=== PATIENT | female | born 1935 | race Caucasian/White ===

== ENCOUNTER 2017-10-06 10:17 | Outpatient (RCR) | payer MEDICARE, OTHER | END 2017-10-12 08:50 | disposition home or self-care (01) | PROVIDERS: ATTEND Nurse Practitioner Family | DX: Z47.89 Encounter for other orthopedic aftercare (principal); M25.511 Pain in right shoulder ==

== ENCOUNTER 2018-04-07 14:54 | Outpatient (RCR) | payer MEDICARE, OTHER | END 2018-05-06 12:55 | disposition home or self-care (01) | PROVIDERS: ATTEND Nurse Practitioner Family | DX: M17.11 Unilateral primary osteoarthritis, right knee (principal) ==

== ENCOUNTER 2018-06-30 10:15 | Outpatient (RCR) | payer MEDICARE | END 2018-07-06 11:14 | disposition home or self-care (01) | PROVIDERS: ATTEND Orthopaedic Surgery | DX: Z47.1 Aftercare following joint replacement surgery (principal); Z96.651 Presence of right artificial knee joint ==

== ENCOUNTER 2018-12-23 00:25 | Inpatient (IN) | payer MEDICARE ==
[~2018-12-23] VITALS: Ht 165.1 cm; Wt 65.3 kg
--- OUTSIDE RECORDS SUMMARY | 2018-12-23 00:30 | XMS REPORT | Continuity of Care Document ---
Demographics Preferred Language Unknown Marital Status Unknown Mormonism Affiliation Unknown Race Unknown Ethnic Group Unknown Author Organization Unknown Address Unknown Allergies There is no data. Medications There is no data. Problems Date Dx Coded Attending Type Code Diagnosis Diagnosed By MARTHA COLEMAN APRN Ot M25.511 PAIN IN RIGHT SHOULDER MARTHA COLEMAN LEAD DESIGNER Ot Z47.89 ENCOUNTER FOR OTHER ORTHOPEDIC AFTERCARE 07/16/1113 GANESH MARIE DO, Ot Z47.1 AFTERCARE FOLLOWING JOINT REPLACEMENT OZUNA 07/16/1113 GANESH MARIE DO Ot Z96.651 PRESENCE OF RIGHT ARTIFICIAL KNEE JOINT 10/17/2009 V05.4 VARICELLA, CHICKENPOX 06/28/2012 V04.81 FLU DX (3 YRS AND ABOVE, IM) 08/24/2017 MARTHA COLEMAN LEAD DESIGNER Ot M25.511 PAIN IN RIGHT SHOULDER 08/24/2017 MARTHA COLEMAN LEAD DESIGNER Ot Z47.89 ENCOUNTER FOR OTHER ORTHOPEDIC AFTERCARE 09/03/2017 JARED MARTHA E LEAD DESIGNER Ot M25.511 PAIN IN RIGHT SHOULDER 09/03/2017 JARED MARTHA E LEAD DESIGNER Ot Z47.89 ENCOUNTER FOR OTHER ORTHOPEDIC AFTERCARE 09/03/2017 JARED MARTHA E LEAD DESIGNER Ot M25.511 PAIN IN RIGHT SHOULDER 09/03/2017 JARED MRATHA E LEAD DESIGNER Ot Z47.89 ENCOUNTER FOR OTHER ORTHOPEDIC AFTERCARE 10/07/2017 JARED, MARTHA E LEAD DESIGNER Ot M25.511 PAIN IN RIGHT SHOULDER 10/07/2017 JARED MARTHA E LEAD DESIGNER Ot Z47.89 ENCOUNTER FOR OTHER ORTHOPEDIC AFTERCARE 10/12/2017 MARTHA COLEMAN LEAD DESIGNER Ot M25.511 PAIN IN RIGHT SHOULDER 10/12/2017 MARTHA COLEMAN LEAD DESIGNER Ot Z47.89 ENCOUNTER FOR OTHER ORTHOPEDIC AFTERCARE 03/05/2018 MARTHA COLEMAN LEAD DESIGNER Ot M17.11 UNILATERAL PRIMARY OSTEOARTHRITIS, RIGHT 06/07/2018 GANESH MARIE DO Ot Z47.1 AFTERCARE FOLLOWING JOINT REPLACEMENT OZUNA 06/07/2018 GANESH MARIE DO Ot Z96.651 PRESENCE OF RIGHT ARTIFICIAL KNEE JOINT 07/01/2018 GANESH MARIE DO Ot Z47.1 AFTERCARE FOLLOWING JOINT REPLACEMENT OZUNA 07/01/2018 GANESH MARIE DO Ot Z96.651 PRESENCE OF RIGHT ARTIFICIAL KNEE JOINT 07/06/2018 GANESH MARIE DO Ot Z47.1 AFTERCARE FOLLOWING JOINT REPLACEMENT OZUNA 07/06/2018 GANESH MARIE DO Ot Z96.651 PRESENCE OF RIGHT ARTIFICIAL KNEE JOINT Procedures There is no data. Results There is no data. Encounters ACCT No. Visit Date/Time Discharge Status Pt. Type Provider Facility Loc./Unit Complaint [id number] 06/28/2012 10:50:00 06/28/2012 23:59:59 CLS Outpatient [id number] 06/30/2018 10:15:00 07/06/2018 11:14:00 DIS Outpatient GANESH MARIE DO Via [facility] REH[facility] S/P R TKA [id number] 04/07/2018 14:54:00 05/06/2018 12:55:00 DIS Outpatient MARTHA COLEMAN APRN Via [facility] REH[facility] OA R KNEE [id number] 10/06/2017 10:17:00 10/12/2017 08:50:00 DIS Outpatient MARTHA COLEMAN APRN [facility] REHAB S/P R SHLD SCOPE;BICEP TENOTOMY;DCE;SAD [id number] 05/26/2017 08:00:00 05/26/2017 23:59:59 CLS Out[facility]
[2018-12-23] MEDS ORDERED: AMLO10TA7 PO (00:59)
[2018-12-23] MEDS ORDERED: OMEP20CA12 PO (00:59)
[2018-12-23] MEDS ORDERED: LACTATED RINGERS 1,000 ML IV ONE (01:04)
--- NOTE | 2018-12-23 01:09 | ED Abdominal Pain ---
General Chief Complaint: Abdominal/GI Problems Stated Complaint: ABD PAIN Source of Information: Patient History of Present Illness Date Seen by Provider: December 23, 2018 Time Seen by Provider: 00:53 Initial Comments PT ARRIVES VIA POV FROM HOME C/O DIFFUSE ABDOMINAL PAIN SINCE 1700 TONIGHT C/O NAUSEA, NO VOMITING HAS HAD NORMAL BM TODAY NO FEVER NO URINARY SYMPTOMS HAS BEEN BELCHING ALOT, WHICH GIVES TEMPORARY RELIEF HAS COLON RESECTION FOR DIVERTICULITIS, APPY AND HYST/BSO. HAS NOT TAKEN ANYTHING FOR PAIN PCP: ARIADNA GUTIERRES Allergies and Home Medications Allergies Coded Allergies: Sulfa (Sulfonamide Antibiotics) (Verified Allergy, Unknown, 12/23/18) Patient Home Medication List Home Medication List Reviewed: Yes Review of Systems Review of Systems Constitutional: no symptoms reported Respiratory: No Symptoms Reported Cardiovascular: No Symptoms Reported Gastrointestinal: See HPI, Abdominal Pain; Denies Constipated, Denies Diarrhea ; Nausea; Denies Poor Appetite, Denies Poor Fluid Intake, Denies Vomiting Genitourinary: No Symptoms Reported Musculoskeletal: no symptoms reported Skin: no symptoms reported Psychiatric/Neurological: No Symptoms Reported Endocrine: No Symptoms Reported Past Oniglrv-Oamfmb-Mjgcke Hx Patient Social History Alcohol Use: Denies Use Recreational Drug Use: No Smoking Status: Never a Smoker 2nd Hand Smoke Exposure: No Recent Foreign Travel: No Contact w/Someone Who Travel: No Recent Hopitalizations: No Immunizations Up To Date Tetanus Booster (TDap): Unknown Seasonal Allergies Seasonal Allergies: No Past Medical History Surgeries: Yes (COLON RESECTION FOR DIVERTICULITIS; RIGHT KNEE REPLACEMENT 2017) Abdominal, Appendectomy, Bowel Surgery, Hysterectomy, Joint Replacement, Oophorectomy, Orthopedic Respiratory: No Cardiac: Yes Hypertension Neurological: No GLOVE BRUSHER History: Hysterectomy, Menopausal Genitourinary: No Gastrointestinal: Yes Gastroesophageal Reflux, Diverticulosis Musculoskeletal: Yes (RIGHT KNEE REPLACEMENT 04/2018) Arthritis Endocrine: No HEENT: No Cancer: No Psychosocial: No Integumentary: No Blood Disorders: No Physical Exam Vital Signs Vital Signs - First Documented 12/23/18 00:52 Temp 98.1 Pulse 94 Resp 16 B/P (MAP) 143/87 (105) Pulse Ox 98 O2 Delivery Room Air Capillary Refill : Height/Weight/BMI Height: '" Weight: lbs. oz. kg; BMI Method: General Appearance: WD/WN, no apparent distress HEENT: PERRL/EOMI Neck: normal inspection Respiratory: normal breath sounds, no respiratory distress, no accessory muscle use Cardiovascular: regular rate, rhythm, no murmur Gastrointestinal: no organomegaly, no pulsatile mass, abnormal bowel sounds ( RARE), distended, tenderness (DIFFUSE); No hernia, No mass Extremities: normal inspection, no pedal edema, normal capillary refill Back: normal inspection, no CVA tenderness Neurologic/Psychiatric: lead java programmer II-XII nml as tested, no motor/sensory deficits, alert, normal mood/affect, oriented x 3 Skin: normal color, warm/dry Progress/Results/Core Measures Results/Orders Lab Results Laboratory Tests Test 12/23/18 01:00 12/23/18 01:10 Range/Units Urine Color YELLOW Urine Clarity CLEAR Urine pH 6.5 5-9 Urine Specific [place] 1.010 L 1.016-1.022 Urine Protein NEGATIVE NEGATIVE Urine Glucose (UA) NEGATIVE NEGATIVE Urine Ketones NEGATIVE NEGATIVE Urine Nitrite NEGATIVE NEGATIVE Urine Bilirubin NEGATIVE NEGATIVE Urine Urobilinogen NORMAL NORMAL MG/DL Urine Leukocyte Esterase 2+ H NEGATIVE Urine RBC (Auto) 3+ H NEGATIVE Urine RBC 2-5 H /HPF Urine WBC 2-5 /HPF Urine Squamous Epithelial Cells 5-10 /HPF Urine Crystals NONE /LPF Urine Bacteria TRACE /HPF Urine Casts NONE /LPF Urine Mucus SMALL H /LPF Urine Culture Indicated NO White Blood Count 9.7 4.3-11.0 10^3/uL Red Blood Count 4.75 4.35-5.85 10^6/uL Hemoglobin 14.6 11.5-16.0 G/DL Hematocrit 44 35-52 % Mean Corpuscular Volume 93 80-99 FL Mean Corpuscular Hemoglobin 31 25-34 PG Mean Corpuscular Hemoglobin Concent 33 32-36 G/DL Red Cell Distribution Width 13.5 10.0-14.5 % Platelet Count 400 130-400 10^3/uL Mean Platelet Volume 8.5 7.4-10.4 FL Neutrophils (%) (Auto) 79 H 42-75 % Lymphocytes (%) (Auto) 11 L 12-44 % Monocytes (%) (Auto) 9 0-12 % Eosinophils (%) (Auto) 1 0-10 % Basophils (%) (Auto) 0 0-10 % Neutrophils # (Auto) 7.6 1.8-7.8 X 10^3 Lymphocytes # (Auto) 1.1 1.0-4.0 X 10^3 Monocytes # (Auto) 0.9 0.0-1.0 X 10^3 Eosinophils # (Auto) 0.1 0.0-0.3 10^3/uL Basophils # (Auto) 0.0 0.0-0.1 10^3/uL Sodium Level 140 135-145 MMOL/L Potassium Level 3.6 3.6-5.0 MMOL/L Chloride Level 105 98-107 MMOL/L Carbon Dioxide Level 21 21-32 MMOL/L Anion Gap 14 5-14 MMOL/L Blood Urea Nitrogen 17 7-18 MG/DL Creatinine 0.94 0.60-1.30 MG/DL Estimat Glomerular Filtration Rate 57 BUN/Creatinine Ratio 18 Glucose Level 131 H 70-105 MG/DL Calcium Level 10.2 H 8.5-10.1 MG/DL Corrected Calcium 9.9 8.5-10.1 MG/DL Total Bilirubin 1.2 H 0.1-1.0 MG/DL Aspartate Amino Transf (AST/SGOT) 17 5-34 U/L Alanine Aminotransferase (ALT/SGPT) 16 0-55 U/L Alkaline Phosphatase 74 40-136 U/L Total Protein 7.7 6.4-8.2 GM/DL Albumin 4.4 3.2-4.5 GM/DL Amylase Level 73 25-125 U/L Lipase 13 8-78 U/L My Orders Orders - DALI BLOOD DO Ed Iv/Invasive Line Start (12/23/18 00:53) Monitor-Rhythm Ecg Trace Only (12/23/18 00:53) Amylase (12/23/18 00:53) Cbc With Automated Diff (12/23/18 00:53) Comprehensive Metabolic Panel (12/23/18 00:53) Lipase (12/23/18 00:53) Ua Culture If Indicated (12/23/18 00:53) Ed Iv/Invasive Line Start (12/23/18 01:04) Lactated Ringers (Lr 1000 Ml Iv Solution (12/23/18 01:04) Ondansetron Injection (Zofran Injectio (12/23/18 01:15) Pantoprazole Injection (Protonix Injecti (12/23/18 01:15) Acute Abd Series (12/23/18 01:39) Ct Abd/Pelvis Wo(Kidney Stone) (12/23/18 01:39) Fentanyl Injection (Sublimaze Injection (12/23/18 03:00) Ondansetron Injection (Zofran Injectio (12/23/18 03:00) Catheter(Urinary) Insert & Ass 03,15 (12/23/18 02:57) Ng Tube Insert & Assessment (12/23/18 02:57) Medications Given in ED Current Medications Medications Dose Ordered Sig/Isac Route Start Time Stop Time Status Last Admin Dose Admin Lactated Ringer's 1,000 ml @ 0 mls/hr Q0M ONCE IV 12/23/18 01:04 12/23/18 01:46 DC 12/23/18 01:17 0 MLS/HR Ondansetron HCl 4 mg ONCE ONCE IVP 12/23/18 01:15 12/23/18 01:46 DC 12/23/18 01:17 4 MG Ondansetron HCl 4 mg ONCE ONCE IVP 12/23/18 03:00 12/23/18 03:01 DC 12/23/18 03:08 4 MG Pantoprazole 40 mg ONCE ONCE IV 12/23/18 01:15 12/23/18 01:46 DC 12/23/18 01:17 40 MG Vital Signs/I&O 12/23/18 00:52 Temp 98.1 Pulse 94 Resp 16 B/P (MAP) 143/87 (105) Pulse Ox 98 O2 Delivery Room Air Diagnostic Imaging Comments ACUTE ABDOMEN XRAYS--NON SPECIFIC BOWEL GAS PATTERN, PENDING RADIOLOGIST REVIEW CT ABDOMEN/PELVIS--HIGH GRADE SMALL BOWEL OBSTRUCTION--PER [facility] VIA FAX @ [id number] Reviewed: Reviewed by Ma Departure Communication (Admissions) 0256--SPOKE WITH DR. RIVERA, ACCEPTS PT FOR ADMIT Impression Primary Impression: Small bowel obstruction Disposition: 09 ADMITTED INPATIENT Condition: Stable Admissions Decision to Admit Reason: Admit from ER (General) Decision to Admit/Date: December 23, 2018 Time/Decision to Admit Time: 03:00 Departure-Patient Inst. Referrals: NO,LOCAL PHYSICIAN (PCP/Family) Primary Care Physician DALI BLOOD DO December 23, 2018 01:09
--- NOTE | 2018-12-23 01:10 | NUR ---
PT INFORMED OF APPROX. WAIT TIME FOR LAB RESULTS.
[2018-12-23 01:15] LABS: BILIRUBIN,URINE NEGATIVE (NEGATIVE); CLARITY,URINE CLEAR; COLOR,URINE YELLOW; GLUCOSE, URINE (UA) NEGATIVE (NEGATIVE); KETONES,URINE NEGATIVE (NEGATIVE); LEUKOCYTE ESTERASE ,URINE 2+ (NEGATIVE); NITRITE,URINE NEGATIVE (NEGATIVE); PH,URINE 6.5 (5-9); PROTEIN,URINE NEGATIVE (NEGATIVE); UROBILINOGEN,URINE NORMAL (NORMAL)
[2018-12-23] MEDS ORDERED: ONDANSETRON 4 MG/2 ML (SDV) Z0FRAN IVP ONE ×2 (01:15→03:00)
[2018-12-23] MEDS ORDERED: PANTOPRAZOLE 40 MG (PROTONIX) VIAL IV ONE (01:15)
[2018-12-23 01:16] LABS: BASOPHILS % (AUTO) 0 % (0-10); EOSINOPHILS # (AUTO) 0.1 10^3/uL (0.0-0.3); EOSINOPHILS % (AUTO) 1 % (0-10); HEMATOCRIT 44 % (35-52); HEMOGLOBIN 14.6 G/DL (11.5-16.0); LYMPHOCYTES # (AUTO) 1.1 X 10^3 (1.0-4.0); LYMPHOCYTES % (AUTO) 11 % (12-44); MEAN CORPUSCULAR HEMOGLOBIN 31 PG (25-34); MEAN CORPUSCULAR HGB CONC 33 G/DL (32-36); MEAN CORPUSCULAR VOLUME 93 FL (80-99); MEAN PLATELET VOLUME 8.5 FL (7.4-10.4); MONOCYTES # (AUTO) 0.9 X 10^3 (0.0-1.0); MONOCYTES % (AUTO) 9 % (0-12); NEUTROPHILS # (AUTO) 7.6 X 10^3 (1.8-7.8); NEUTROPHILS % (AUTO) 79 % (42-75); PLATELET COUNT 400 10^3/uL (130-400); RED CELL DISTRIBUTION WIDTH 13.5 % (10.0-14.5); WHITE BLOOD COUNT 9.7 10^3/uL (4.3-11.0)
[2018-12-23 01:21] LABS: BACTERIA,URINE TRACE /HPF
[2018-12-23 01:46] LABS: ALBUMIN 4.4 GM/DL (3.2-4.5); BILIRUBIN,TOTAL 1.2 MG/DL (0.1-1.0); CALCIUM 10.2 MG/DL (8.5-10.1); CREATININE SERUM 0.94 MG/DL (0.60-1.30); POTASSIUM 3.6 MMOL/L (3.6-5.0); TOTAL PROTEIN 7.7 GM/DL (6.4-8.2)
--- NOTE | 2018-12-23 02:27 | NUR ---
PT BACK FROM RAD. DENIES NEEDS AT THIS TIME.
[2018-12-23] MEDS ORDERED: fentaNYL INJECTION 100 MCG/2 ML AMP IVP ONE (03:00)
--- OUTSIDE RECORDS SUMMARY | 2018-12-23 03:12 | XMS REPORT | Continuity of Care Document ---
Demographics Preferred Language Unknown Marital Status Unknown Buddhism Affiliation Unknown Race Unknown Ethnic Group Unknown Author Organization Unknown Address Unknown Allergies There is no data. Medications There is no data. Problems Date Dx Coded Attending Type Code Diagnosis Diagnosed By MARTHA COLEMAN APRN Ot M25.511 PAIN IN RIGHT SHOULDER MARTHA COLEMAN GUILLOTINE OPERATOR Ot Z47.89 ENCOUNTER FOR OTHER ORTHOPEDIC AFTERCARE 07/16/1113 GANESH MARIE DO, Ot Z47.1 AFTERCARE FOLLOWING JOINT REPLACEMENT OZUNA 07/16/1113 GANESH MARIE DO Ot Z96.651 PRESENCE OF RIGHT ARTIFICIAL KNEE JOINT 10/17/2009 V05.4 VARICELLA, CHICKENPOX 06/28/2012 V04.81 FLU DX (3 YRS AND ABOVE, IM) 08/24/2017 MARTHA COLEMAN GUILLOTINE OPERATOR Ot M25.511 PAIN IN RIGHT SHOULDER 08/24/2017 MARTHA COLEMAN GUILLOTINE OPERATOR Ot Z47.89 ENCOUNTER FOR OTHER ORTHOPEDIC AFTERCARE 09/03/2017 JARED MARTHA E GUILLOTINE OPERATOR Ot M25.511 PAIN IN RIGHT SHOULDER 09/03/2017 JARED MARTHA E GUILLOTINE OPERATOR Ot Z47.89 ENCOUNTER FOR OTHER ORTHOPEDIC AFTERCARE 09/03/2017 JARED MARTHA E GUILLOTINE OPERATOR Ot M25.511 PAIN IN RIGHT SHOULDER 09/03/2017 JARED MARTHA E GUILLOTINE OPERATOR Ot Z47.89 ENCOUNTER FOR OTHER ORTHOPEDIC AFTERCARE 10/07/2017 JARED, MARTHA E GUILLOTINE OPERATOR Ot M25.511 PAIN IN RIGHT SHOULDER 10/07/2017 JARED MARTHA E GUILLOTINE OPERATOR Ot Z47.89 ENCOUNTER FOR OTHER ORTHOPEDIC AFTERCARE 10/12/2017 MARTHA COLEMAN GUILLOTINE OPERATOR Ot M25.511 PAIN IN RIGHT SHOULDER 10/12/2017 MARTHA COLEMAN GUILLOTINE OPERATOR Ot Z47.89 ENCOUNTER FOR OTHER ORTHOPEDIC AFTERCARE 03/05/2018 MARTHA COLEMAN GUILLOTINE OPERATOR Ot M17.11 UNILATERAL PRIMARY OSTEOARTHRITIS, RIGHT 06/07/2018 [...] Status Pt. Type Provider Facility Loc./Unit Complaint [id number] 06/28/2012 10:50:00 06/28/2012 23:59:59 CLS Outpatient [id number] 06/30/2018 10:15:00 07/06/2018 11:14:00 DIS Outpatient GANESH MARIE DO Via [facility] REH[facility] S/P R TKA [id number] 04/07/2018 14:54:00 05/06/2018 12:55:00 DIS Outpatient MARTHA COLEMAN APRN [facility] REH[facility] OA R KNEE [id number] 10/06/2017 10:17:00 10/12/2017 08:50:00 DIS Outpatient MARTHA COLEMAN APRN [facility] REH[facility] S/P R SHLD SCOPE;BICEP TENOTOMY;DCE;SAD [id number] 05/26/2017 08:00:00 05/26/2017 23:59:59 CLS Outpatient [facility]
[2018-12-23] MEDS ORDERED: PROMETHAZINE INJ 25 MG/ML (PHENERGAN) AMP IVP ONE (03:30)
--- NOTE | 2018-12-23 03:55 | NUR ---
MEGAN LEWIS admitted to room 419-1, with an admitting diagnosis of SBO, on 12/23/18 from ED via [facility], accompanied by STAFF.MEGAN LEIWS introduced to surroundings, call light, bed controls, phone, TV, temperature control, lights, meal times, smoking policy, visitor policy, side rail policy, bathrooms and showers. Patient Rights given to patient in the handbook. MEGAN LEWIS verbalizes understanding that [facility] is not responsible for the loss or damage to any personal effects or valuables that are kept in the patients possessions during their hospitalization.
[2018-12-23] MEDS ORDERED: ONDANSETRON 4 MG/2 ML (SDV) Z0FRAN IV PRN (04:30)
[2018-12-23] MEDS: D5 1/2 NS W/KCL 20 MEQ/L 1,000 ML IV SCH ×4 (04:46→21:16)
--- NOTE | 2018-12-23 05:31 | Diagnostic Imaging Report ---
INDICATION: Upper abdominal pain and nausea. COMPARISON: CT abdomen and pelvis from same day. FINDINGS: Supine and upright views of the abdomen show a nondistended bowel gas pattern. No abnormal air fluid levels or free intraperitoneal air is seen. No abnormal extraosseous calcifications are seen. Bony and soft tissue structures are within normal limits. No organomegaly is identified. Accompanying upright chest shows normal heart size and pulmonary vascularity. The lungs are well aerated and clear. The mediastinum is normal in appearance. IMPRESSION: 1. No bowel obstruction or free air. 2. Normal chest. No pneumonia or pulmonary edema. Dictated by: Dictated on workstation # [id number]
[2018-12-23 06:54] LABS: BASOPHILS % (AUTO) 0 % (0-10); EOSINOPHILS % (AUTO) 0 % (0-10); HEMATOCRIT 44 % (35-52); HEMOGLOBIN 14.5 G/DL (11.5-16.0); LYMPHOCYTES # (AUTO) 0.7 X 10^3 (1.0-4.0); LYMPHOCYTES % (AUTO) 9 % (12-44); MEAN CORPUSCULAR HEMOGLOBIN 31 PG (25-34); MEAN CORPUSCULAR HGB CONC 33 G/DL (32-36); MEAN CORPUSCULAR VOLUME 94 FL (80-99); MONOCYTES # (AUTO) 0.5 X 10^3 (0.0-1.0); MONOCYTES % (AUTO) 7 % (0-12); NEUTROPHILS # (AUTO) 6.3 X 10^3 (1.8-7.8); NEUTROPHILS % (AUTO) 83 % (42-75); PLATELET COUNT 355 10^3/uL (130-400); RED CELL DISTRIBUTION WIDTH 13.6 % (10.0-14.5); WHITE BLOOD COUNT 7.5 10^3/uL (4.3-11.0)
--- NOTE | 2018-12-23 07:03 | Diagnostic Imaging Report ---
PROCEDURE: CT urinary tract, rule out kidney stone. TECHNIQUE: Multiple contiguous axial images were obtained through the abdomen and pelvis without the use of intravenous contrast. Auto Exposure Controls were utilized during the CT exam to meet ALARA standards for radiation dose reduction. INDICATION: Upper abdominal pain and nausea COMPARISON: None FINDINGS: Included portions of the lung bases show 5 mm micronodule within the inferolateral margins of the right middle lobe (image 7, series 3). CT abdomen: Normal appendix can't be adequately identified, but there is no pericecal inflammation. A few prominent loops of fluid-filled proximal small bowel loops are identified within the left lower abdominal quadrant. At its widest, the small bowel measures 2.4 cm in diameter. There is associated mild stranding of the adjacent small bowel mesentery. Small amount of ascites is also noted. No definite focal transition point is seen. There is some fecalized stool near the transition to normal small bowel caliber. There is no pneumatosis, pneumoperitoneum, nor portal venous gas. No loculated air-fluid collections are seen to suggest abscess. Note is also made of moderate hiatal hernia and significant distention of the stomach. The kidneys, adrenal glands, spleen, pancreas, and liver have an unremarkable noncontrast CT appearance. No abnormal mesenteric or retroperitoneal adenopathy is seen. There is mild calcified aortic and arterial atherosclerosis. Bony structures show no acute abnormalities. CT pelvis: Urinary bladder is unopacified. No calculi are seen within the urinary bladder. There is no loculated fluid collection, free fluid, nor free air. No abnormal pelvic adenopathy is identified. Bony structures show no acute abnormalities. IMPRESSION: 1. A few mildly prominent fluid-filled loops of small bowel are noted within the left lower abdominal quadrant. Findings nonspecific, but raise concern for enteritis and possible partial obstruction. 2. Mild stranding of the associated mesentery and small amount of ascites, but no pneumatosis, pneumoperitoneum, portal venous gas, nor loculated air-fluid collection. 3. Moderate hiatal hernia. 4. Small micronodule within the included portions of the right middle lobe. If the patient is in a high-risk category, such as history of smoking, may want to consider one-year followup to ensure stability. Dictated by: Dictated on workstation # [id number]
[2018-12-23 07:14] LABS: ALBUMIN 4.1 GM/DL (3.2-4.5); BILIRUBIN,TOTAL 1.3 MG/DL (0.1-1.0); CALCIUM 9.9 MG/DL (8.5-10.1); CREATININE SERUM 0.94 MG/DL (0.60-1.30); TOTAL PROTEIN 7.3 GM/DL (6.4-8.2)
[2018-12-23] MEDS: fentaNYL INJECTION 100 MCG/2 ML AMP IV PRN ×2 (07:59→09:38)
[2018-12-23 08:00] VITALS: BP 149/77
[2018-12-23] MEDS ORDERED: ACET-2650 PO (09:18)
[2018-12-23] MEDS ORDERED: CHOL10007 PO (09:18)
[2018-12-23] MEDS ORDERED: POTA99TA21 PO (09:18)
[2018-12-23] MEDS ORDERED: CETI10TA20 PO (09:18)
[2018-12-23] MEDS ORDERED: CALC-927 PO (09:18)
--- NOTE | 2018-12-23 09:19 | NUR ---
SPOKE WITH THE PATIENT ABOUT HER MEDICATIONS. SHE LISTED WHAT SHE IS TAKING. I VERIFIED THE PRESCRIPTIONS WITH THE EXT MED HX. SHE TAKES THE FOLLOWING OTC: TYLENOL ARTHRITIS PRN VITAMIN D DAILY ZYRTEC DAILY CALCIUM MAGNESIUM ZINC DAILY POTASSIUM DAILY
[2018-12-23] MEDS: PANTOPRAZOLE 40 MG (PROTONIX) VIAL IV SCH (09:21)
[2018-12-23] MEDS ORDERED: FLEET ENEMA ADULT 1 EA BTL PR PRN (09:30)
[2018-12-23] MEDS: MAGNESIUM CITRATE 300 ML BTL PO NR ×2 (10:06→21:16)
[2018-12-23] MEDS: CIPROFLOXACIN IV 400MG/200ML 200 ML IV SCH ×2 (10:24→21:15)
--- NOTE | 2018-12-23 11:03 | HISTORY AND PHYSICAL ---
DATE OF SERVICE: 12/23/2018 HISTORY OF PRESENT ILLNESS: The patient is an 83-year-old female who presented to the Emergency Department with abdominal pain, mild abdominal distention, has one episode of vomiting. A CT scan was performed, which did show a slight dilatation of bowel loops; however, did not appear to be significant and no signs of obstruction. She did have a bowel movement earlier that day. She reports a longstanding history of constipation; however, since being diagnosed with diverticulosis with complications requiring sigmoid colon resection, she has been better about promoting soft stools. She states that she did have a colonoscopy more recently, which was approximately 4 years ago and states that this was normal. Upon further questioning, she does have a history of gastroesophageal reflux disease as well as esophageal stricture requiring a balloon dilatation, which was done several years ago. She continues to have issues with gastroesophageal reflux disease. Again, with more questioning, it was identified that she does have intermittent abdominal pain more in the upper abdominal quadrant after eating a meal and she has had some intermittent episodes of nausea and this has worsened over the years. Upon evaluation of CT scan, she does have a distended gallbladder, which may indicate biliary sludge or a biliary dyskinesia. PAST MEDICAL HISTORY: Gastroesophageal reflux disease, hypertension, degenerative joint disease, and history of diverticulosis. PAST SURGICAL HISTORY: Open sigmoid colon resection in 2003, total hysterectomy with appendectomy, right total knee arthroplasty 04/2018, and right shoulder surgery. ALLERGIES: SULFA. MEDICATIONS: Amlodipine 5 mg daily, omeprazole 40 mg daily. SOCIAL HISTORY: Negative smoke, negative alcohol. FAMILY HISTORY: Mother, ovarian cancer. VITAL SIGNS: Temperature 98.1, blood pressure 143/87, pulse 94, respirations 16, and pulse ox 98% on room air. REVIEW OF SYSTEMS: Well-nourished female currently in no acute distress. She is not experiencing any shortness of breath or difficulty breathing. No chest pain, palpitations, diaphoresis. No nausea, vomiting with her last bowel movement yesterday. No red blood per rectum, no dark tarry stools. History of epigastric burning sensation as well as gastroesophageal reflux disease as well as esophageal stricture requiring a balloon dilatation in the past. She reports that she does have occasional episodes of dysphagia. No fever, chills, no recent inadvertent weight loss. All other review of systems are negative. PHYSICAL EXAMINATION: CHEST: Clear. Good breath sounds bilaterally. HEART: Regular, no murmurs. HEENT: No scleral icterus. NECK: No cervical lymphadenopathy. EXTREMITIES: No lower extremity edema. Negative Homans sign. ABDOMEN: Soft, nondistended. There is discomfort on palpation of the epigastric region as well as right upper abdominal quadrant. SKIN: Warm, dry. LABORATORY DATA: WBC 7.5, hemoglobin 14.5, hematocrit 44, platelets 355. Total bilirubin 1.3, AST 16, ALT 15, BUN 13, and creatinine 0.94. ASSESSMENT AND PLAN: An 83-year-old female with intermittent abdominal pain with episodes of nausea and vomiting. CT scan did show stool within the colon. There was mild dilatation of the small bowel; however, this does not appear consistent with small-bowel obstruction. One thing that was noted was dilatation of the gallbladder and we will remove her NG tube and start a clear liquid diet and also get an ultrasound of the gallbladder. If she does have continued symptoms of crampy abdominal pain after eating a meal as well as nausea, vomiting, she may benefit from a laparoscopic cholecystectomy; however, she also does have issues with gastroesophageal reflux disease and we will also proceed with an esophagogastroduodenoscopy as well as possible balloon dilatation due to intermittent dysphagia. Job ID: [id number] DocumentID: [id number] Dictated Date: 12/23/2018 10:39:22 Biometric Technician Date: 12/23/2018 11:02:13 Dictated By: JESSICA RIVERA MD [facility]
[2018-12-23 12:00] VITALS: BP 113/70
--- NOTE | 2018-12-23 13:56 | Diagnostic Imaging Report ---
PROCEDURE: US Gallbladder. TECHNIQUE: Multiple real-time grayscale images were obtained over the right upper quadrant in various projections. INDICATION: Abdominal discomfort and pain. The liver is normal in size at 16.4 cm. No discrete liver mass is identified. Portal vein is patent and shows normal direction of flow. Gallbladder is without stones or sludge. No wall thickening or biliary duct dilatation is identified. Pancreas is poorly visualized due to bowel gas. Right kidney is unremarkable. There is no ascites. IMPRESSION: Unremarkable gallbladder ultrasound. Dictated by: Dictated on workstation # [id number]
[2018-12-23 15:52] VITALS: BP 125/70
[2018-12-23 19:15] VITALS: BP 125/71
[2018-12-24 00:46] VITALS: BP 119/57
[2018-12-24 04:00] VITALS: BP 165/73
[2018-12-24] MEDS: D5 1/2 NS W/KCL 20 MEQ/L 1,000 ML IV SCH ×3 (05:12→23:04)
[2018-12-24 08:00] VITALS: BP 133/63
[2018-12-24] MEDS: CIPROFLOXACIN IV 400MG/200ML 200 ML IV SCH ×2 (10:06→20:59)
[2018-12-24] MEDS: PANTOPRAZOLE 40 MG (PROTONIX) VIAL IV SCH (10:06)
[2018-12-24 12:00] VITALS: BP 157/72
--- NOTE | 2018-12-24 15:56 | Diagnostic Imaging Report ---
INDICATION: Right upper quadrant pain, nausea, vomiting. FINDINGS: The patient was administered 5.32 mCi of Tc 99m Choletec and sequential imaging was performed over the right upper abdomen. There is progressive, homogeneous accumulation of radiotracer within the liver parenchyma. There is filling of the bile ducts and subsequent filling of the gallbladder. There is progressive clearance of activity from the liver parenchyma and accumulation of radiotracer within loops of small bowel. The patient was then administered a fatty meal, utilizing 8 ounces of Ensure. The gallbladder ejection fraction was calculated to be approximately 51%. (Normal values post fatty meal stimulation are 33% or greater.) IMPRESSION: 1. Hepatobiliary scan demonstrates a patent biliary tree. 2. Normal gallbladder ejection fraction of approximately 51%. Dictated by: Dictated on workstation # [id number]
[2018-12-24 16:00] VITALS: BP 149/67
[2018-12-24 20:00] VITALS: BP 152/68
--- NOTE | 2018-12-24 20:47 | Progress Note-Standard ---
Standard Progress Note Progress Notes/Assess & Plan Date Seen by a Provider: December 24, 2018 Time Seen by a Provider: 20:00 Progress/Assessment & Plan patient at nuclear medicine for HIDA. talked to patient by phone after return to room. patient had reproduction of symptoms after kinevac analog with epigastric and RUQ abd pain and nausea consistent with biliary dyskinesia. pt also has hx of GERD and esophageal stricture. VSS and otherwise doing well. will plan for lap hafsa and EGD on thursday(12/25) at 10:30am. JESSICA RIVERA MD December 24, 2018 20:47
--- NOTE | 2018-12-24 20:47 | Progress Note-Pre Operative ---
Pre-Operative Progress Note H&P Reviewed The H&P was reviewed, patient examined and no changes noted. Date Seen by Provider: December 24, 2018 Time Seen by Provider: 20:00 Date H&P Reviewed: December 24, 2018 Time H&P Reviewed: 20:00 Pre-Operative Diagnosis: sx biliary dyskinesia, GERD, hx esophageal stricture. JESSICA RIVERA MD December 24, 2018 20:47
[2018-12-25] VITALS (12 sets, daily range): BP systolic 124–163; BP diastolic 57–78
[2018-12-25] MEDS: D5 1/2 NS W/KCL 20 MEQ/L 1,000 ML IV SCH ×3 (05:34→16:47)
[2018-12-25] MEDS ORDERED: morphine INJ 10 MG/ML 1ML (SYR OR VIAL) IVP ONE (08:30)
[2018-12-25] MEDS ORDERED: ONDANSETRON 4 MG/2 ML (SDV) Z0FRAN IVP PRN (08:30)
[2018-12-25] MEDS: PANTOPRAZOLE 40 MG (PROTONIX) VIAL IV SCH (08:49)
[2018-12-25] MEDS: fentaNYL INJECTION 100 MCG/2 ML AMP IV PRN (08:49)
[2018-12-25] MEDS: CIPROFLOXACIN IV 400MG/200ML 200 ML IV SCH (08:50)
[2018-12-25] MEDS ORDERED: DEXAMETHASONE 10 MG/ML (DECADRON) 1 ML VIAL ONE (09:12)
[2018-12-25] MEDS ORDERED: LIDOCAINE PF 2% 5 ML (XYLOCAINE) VIAL ONE (09:12)
[2018-12-25] MEDS ORDERED: SUCCINYLCHOLINE INJ 100 MG/5 ML SYR ONE (09:12)
[2018-12-25] MEDS ORDERED: SEVOFLURANE (ULTANE) 15 ML INHAL SOLN ONE (09:12)
[2018-12-25] MEDS ORDERED: proPOfol 200 MG/20 ML (DIPRIVAN) VIAL IV ONE (09:12)
[2018-12-25] MEDS ORDERED: ROCURONIUM 10 MG/ML 5 ML SYRINGE IV ONE (09:12)
[2018-12-25] MEDS ORDERED: ONDANSETRON 4 MG/2 ML (SDV) Z0FRAN ONE (09:12)
[2018-12-25] MEDS ORDERED: fentaNYL INJECTION 100 MCG/2 ML AMP ONE (09:13)
--- NOTE | 2018-12-25 10:29 | Progress Note-Standard ---
Standard Progress Note Progress Notes/Assess & Plan Date Seen by a Provider: December 25, 2018 Time Seen by a Provider: 09:15 Progress/Assessment & Plan Patient seen with Dr. Lewis. Patient reports doing well but having episode of RUQ abdominal pain and reflux, especially after eating. Questions and concerns answered. Will proceed with Lap hafsa and EGD today. ELDA LUTZ APRN December 25, 2018 10:29
[2018-12-25] MEDS ORDERED: ceFAZolin INJECTION 1,000 MG in WATER (STERILE) FOR INJECTION 10 ML IV ONE (10:30)
[2018-12-25] MEDS ORDERED: morphine INJ 10 MG/ML 1ML (SYR OR VIAL) ONE (11:16)
[2018-12-25] MEDS ORDERED: BUP/EPI 0.5% 1:200,000 (SENSORCAINE) 30 ML VIAL ONE (11:33)
[2018-12-25] MEDS ORDERED: HYDR-34 PO (11:57)
[2018-12-25] MEDS ORDERED: PANT40TA2 PO (11:57)
--- NOTE | 2018-12-25 11:58 | Discharge Inst-Surgical ---
D/C Lap Instructions-MIGUEL New, Converted, or Re-Newed RX: RX on Chart Follow Up Appt in 2 weeks Activity as tolerated No driving for 24 hours No driving while on pain medications Incentive Spirometry use every 2 hours while awake Regular Diet Symptoms to Report: Fever over 101 degree F, Nausea/Vomiting Infection Signs and Symptoms to report: Increased redness, Foul odor of wound, Increased drainage Bathing instructions: May shower Operative Area Clean/Dry; Keep incision clean/dry If any problems/questions: Contact your physician or go to Emergency Room JESSICA RIVERA MD December 25, 2018 11:58
[2018-12-25] MEDS: LACTATED RINGERS 1,000 ML IV PRN ×2 (12:10→13:00)
[2018-12-25] MEDS ORDERED: ceFAZolin INJECTION 1,000 MG ONE (12:18)
--- NOTE | 2018-12-25 13:39 | Progress Note-Post Operative ---
Post-Operative Progess Note Surgeon (s)/Playground Worker (s) Surgeon JESSICA RIVERA MD Playground Worker: karen beltran ACCESSIBILITY LIFT TECHNICIAN Pre-Operative Diagnosis sx biliary dyskinesia, GERD, hx esophageal stricture. Post-Operative Diagnosis chronic calculous cholecystitis, reflux esophagitis(stage 2), mild distal esophageal stricture vs achalasia, small HH(1.5cm), moderate gastritis. Procedure & Operative Findings Date of Procedure 12/25/18 Procedure Performed/Findings laparoscopic cholecystectomy. EGD with bx and balloon dilatation. Anesthesia Type GET Estimated Blood Loss Estimated blood loss (mL): minimal Specimens/Packing Specimens Removed gallbladder, ge jxn, antrum JESSICA RIVERA MD December 25, 2018 13:39
[2018-12-25] MEDS ORDERED: PROMETHAZINE INJ 25 MG/ML (PHENERGAN) AMP IVP PRN (16:00)
--- NOTE | 2018-12-25 19:07 | OPERATIVE REPORT ---
DATE OF SERVICE: 12/25/2018 PREOPERATIVE DIAGNOSES: Symptomatic biliary dyskinesia, gastroesophageal reflux disease, and history of esophageal stricture. POSTOPERATIVE DIAGNOSES: Chronic calculous cholecystitis, reflux esophagitis stage II, mild distal esophageal stricture versus achalasia, small hiatal hernia approximately 1.5 cm in size, and moderate gastritis. Pylorus and duodenum appeared normal with no distal obstructions. PROCEDURES PERFORMED: 1. Laparoscopic cholecystectomy. 2. Esophagogastroduodenoscopy with biopsy and balloon dilatation. SURGEON: Jessica Rivera MD. ANESTHESIA: General endotracheal. ESTIMATED BLOOD LOSS: Minimal. FINDINGS: As above in the postop. DISPOSITION: The patient tolerated the procedure well. INDICATIONS: The patient is an 83-year-old female who presented to the Emergency Department with abdominal pain, distention and vomiting. A CT scan was performed, which did show some slight dilatation of small bowel loops; however, did not appear significant with no signs of obstruction. She had also reported having a bowel movement earlier that day. She does have a longstanding history of constipation and had issues with diverticulosis and complications requiring sigmoid colon resection. Since that time, she has been better about taking stool softeners as well as adding fiber to make her stools softer. She also reports that she has had a history of gastroesophageal reflux disease and esophageal stricture requiring a balloon dilatation. Upon further questioning, she does report having intermittent episodes of right upper abdominal quadrant pain usually after eating a meal and intermittent episodes of nausea and vomiting as well. Upon evaluation with CT scan, she did have a distended gallbladder. An ultrasound was performed which did not show any gallstones; however, during the HIDA scan, she did have reproduction of symptoms after the administration of Kinevac analog consistent with a biliary dyskinesia. DESCRIPTION OF PROCEDURE: The patient was brought to the operating room, laid supine on the table. After adequate IV pain and sedative medications and general endotracheal intubation, the abdomen was prepped and draped in standard surgical fashion. A 0.5% Marcaine with epinephrine was then used to anesthetize the overlying skin in the left upper abdominal quadrant and a transverse skin incision made using 15-blade. An #0 silk suture was applied to the medial aspect of the incision for traction and a Veress needle inserted with low opening pressure of 0 mmHg. The Veress needle was then removed and a 5 mm Xcel trocar placed followed by a 5 mm 45-degree angle laparoscope visualizing the peritoneal cavity. A 4-quadrant abdominal x-ray was performed. There were significant omental and small bowel adhesions to the anterior abdominal wall secondary to her laparotomy incision. We were able to get the laparoscope to the right side of the abdomen and a 5 mm Xcel trocar placed under direct visualization. We then proceeded with lysis of adhesions near periumbilical region using EndoShears and electrocautery with visualization of good hemostasis. Once this area was cleared, a 10 mm supraumbilical port was placed under direct visualization. The patient was then placed in reverse Trendelenburg position as well as plane right side up, left side down. There were significant omental adhesions to the gallbladder, most likely indicating a chronic inflammation. The fundus of the gallbladder was then retracted anteriorly and superiorly and the omental adhesions were then taken down. The omental adhesions to the fundus and body of the gallbladder were then taken down using electrocautery as well as blunt dissection. The hepatoduodenal ligament was then opened using blunt dissection as well as electrocautery and a hook instrument. The entire critical view of safety was identified including the triangle of Calot as well as the cystic duct and artery as the only two structures going into the gallbladder as well as the cystic plate behind the proximal gallbladder. A timeout was then taken. The cystic duct and artery were then clipped proximally, distally and cut with EndoShears. The gallbladder was then dissected off the liver bed using electrocautery and hook instrument with visualization of good hemostasis as well as no leaking ducts of Luschka. The gallbladder was removed through the 10 mm port site using an EndoCatch bag. The 10 mm port site fascia and peritoneum were then closed under direct visualization using a Norbert-Chelsie device and #0 Vicryl suture. The abdomen was then desufflated and the remaining ports removed. All skin incisions were closed using 4-0 Monocryl running subcuticular sutures. Wounds were then cleaned with Dermabond. The patient tolerated the procedure well. We will start a clear liquid diet and advance as tolerated as well as IV and oral pain medication. Once she has adequate pain control with oral pain medications, ambulating well and tolerating liquids, we will discharge her home. Under the same anesthesia, we then proceeded with the EGD portion of the procedure. The endoscope was placed in the mouth, visualizing the pharynx and hypopharyngeal region. Vocal cords, epiglottis and vallecula identified and appeared to be normal. The endoscope was then gently intubated at the esophageal opening and esophagus insufflated. Endoscope was then advanced to the first, second and third portion of esophagus at the level of the GE junction and there appeared to be a reflux esophagitis stage II. There did not appear to be a Schatzki ring; however, there was narrowing of the esophagus, which may indicate a mild distal esophageal stricture from scar tissue versus achalasia. A biopsy was taken of the GE junction with forceps with visualization of good hemostasis. The endoscope was then advanced into the stomach and endoscope retroflexed, visualizing a small hiatal hernia approximately 1.5 cm in size. There was a moderate severity gastritis. No formal ulcerations, polyps or any neoplasms. A biopsy was taken of the antrum with forceps to rule out H. pylori with visualization of good hemostasis. Endoscope was then advanced to the pylorus and the first and second portion of the duodenum, which appeared normal with no distal obstructions. We then proceeded with dilatation of the distal esophageal stricture versus achalasia. The balloon was placed in the stomach and pulled back to the area of the stenotic region. The balloon was then insufflated to 2 atmospheres of pressure with no resistance. We then proceeded to 4 atmospheres of pressure with no resistance and then to 6 atmospheres of pressure with mild resistance. This was left in place for approximately 60 seconds. The balloon was then desufflated and removed. Good hemostasis was observed as well as no mucosal tears. The endoscope was then slowly withdrawn while taking a second look and suctioning of residual air with no additional findings. The patient tolerated the procedure well. We will recommend the necessary lifestyle and diet accommodation including small and more frequent meals, avoidance of eating at night as well as head elevation while lying supine. She also needs to avoid caffeinated beverages, spicy, greasy and acidic foods. We will also switch her from her omeprazole to Protonix or pantoprazole 40 mg daily. Job ID: [id number] DocumentID: [id number] Dictated Date: 12/25/2018 13:52:43 Pastry Chef Date: 12/25/2018 19:06:58 Dictated By: JESSICA RIVERA MD
--- NOTE | 2018-12-26 12:54 | Anesthesia-General Post-Op ---
General Patient Condition Mental Status/LOC: Same as Preop Cardiovascular: Satisfactory Nausea/Vomiting: Absent Respiratory: Satisfactory Pain: Controlled Complications: Absent Post Op Complications Complications None Follow Up Care/Instructions Patient Instructions None needed. Anesthesia/Patient Condition Patient Condition Patient is doing well, no complaints, stable vital signs, no apparent adverse anesthesia problems. No complications reported per nursing. CHICHO DOVE CRNA December 26, 2018 12:54
--- NOTE | 2018-12-28 10:08 | Physician Query-Final Dx ---
RIO DIA 12/28/18 1008: Final Diagnosis Give Final Diagnosis Please give Final Diagnosis JESSICA RIVERA MD 12/28/18 1318: Final Diagnosis Give Final Diagnosis reflux esophagitis, distal esophageal stricture, gastritis, chronic acalculous cholecystitis. RIO DIA December 28, 2018 10:08 JESSICA RIVERA MD December 28, 2018 13:18
== END 2018-12-25 19:42 | disposition home or self-care (01) | DRG 419 ==
LOC: EDUNIT# 00:25 → ER 00:27 → 4TH 03:00
PROVIDERS: ADMIT Surgery; ATTEND Surgery
PROC: 0DB78ZX Excision of Stomach, Pylorus, Via Natural or Artificial Opening Endoscopic, Diagnostic (ICD-10-PCS; 2018-12-25)
PROC: 0D758ZZ Dilation of Esophagus, Via Natural or Artificial Opening Endoscopic (ICD-10-PCS; 2018-12-25)
PROC: 0FT44ZZ Resection of Gallbladder, Percutaneous Endoscopic Approach (ICD-10-PCS; principal; 2018-12-25 12:24)
PROC: 0DB48ZX Excision of Esophagogastric Junction, Via Natural or Artificial Opening Endoscopic, Diagnostic (ICD-10-PCS; 2018-12-25 12:24)
DX: K81.1 Chronic cholecystitis (principal); K21.0 Gastro-esophageal reflux disease with esophagitis; K22.2 Esophageal obstruction; K22.0 Achalasia of cardia; K29.70 Gastritis, unspecified, without bleeding; K44.9 Diaphragmatic hernia without obstruction or gangrene; K82.8 Other specified diseases of gallbladder; I10 Essential (primary) hypertension; M19.91 Primary osteoarthritis, unspecified site; K59.00 Constipation, unspecified; Z87.19 Personal history of other diseases of the digestive system; Z96.651 Presence of right artificial knee joint; Z88.2 Allergy status to sulfonamides; Z79.899 Other long term (current) drug therapy; Z80.41 Family history of malignant neoplasm of ovary; Z90.49 Acquired absence of other specified parts of digestive tract
CPT/HCPCS: 36415; 74022; 74176; 76705; 78227; 80053; 81000; 82150; 83690; 85025; 87081; 88304; 88305; 93041; 96361; 96374; 96375; 96376

== ENCOUNTER 2019-03-04 09:17 | Outpatient (RCR) | payer MEDICARE ==
[~2019-03-04 09:17] MED LIST: ACET-2650 PO; AMLO10TA7 PO; CALC-927 PO; CETI10TA20 PO; CHOL10007 PO; HYDR-34 PO; OMEP20CA13 PO; PANT40TA2 PO; POTA99TA21 PO
== END 2019-04-04 13:04 | disposition home or self-care (01) ==
PROVIDERS: ATTEND Physician Assistant
DX: M54.16 Radiculopathy, lumbar region (principal)